=== PATIENT | female | born 1995 | race Caucasian/White ===

== ENCOUNTER 2017-05-08 07:35 | Emergency (ER) | payer SELFPAY ==
[~2017-05-08] VITALS: Ht 167.6 cm; Wt 103.0 kg
[~2017-05-08 07:35] MED LIST: RANI150 PO
[2017-05-08 07:40] VITALS: BP 141/94; PULSE 103; RESP 16; TEMP 97.9; O2SAT 98
[2017-05-08] MEDS ORDERED: IBUP400T20 PO (07:55)
[2017-05-08] MEDS ORDERED: NORC5TAB PO (07:55)
[2017-05-08] MEDS ORDERED: PENI500T PO (07:55)
[2017-05-08] MEDS ORDERED: PERI0.126 SWISH-SPIT (07:55)
--- NOTE | 2017-05-08 07:56 | PD ---
HPI Chief Complaint: Oral / Dental Pain or Problem Time Seen by Provider: 07:45 Travel History International Travel<30 days: No Contact w/Intl Traveler<30days: No Traveled to known affect area: No History of Present Illness HPI The patient is a 22-year-old female who presents to the emergency department for dental pain. The patient has a history of recurrent infections to the lower wisdom tooth on the right side, was being followed by a dentist in [place]. The patient states her last 4 days she's had some tenderness of the posterior, lower, right wisdom tooth. The area is sensitive to heat and cold as well as mastication. The pain is moderate, radiates up to the right ear, and there are no current alleviating or exacerbating factors. The patient denies any drainage in the affected area and denies any significant bleeding from the affected area. She does not currently have a dentist. She denies any trauma to the affected area. PFSH Past Medical History Anxiety: Yes Depression: Yes Diminished Hearing: No Headaches: Yes Immunizations Current: Yes Migraines: Yes Tetanus Vaccination: < 5 Years Influenza Vaccination: No ?: Not LMP: 5 DAYS AGO : 0 Past Surgical History Surgical History: No Previous Surgery Social History Alcohol Use: No (Socially) Tobacco Use: Yes (1/2 PPD) Substance Use: No (Patient denies abuse. States feels that she "needs it for anxiety" (Xanax).) Allergies-Medications (Allergen,Severity, Reaction): Coded Allergies: Trazodone (Unverified Allergy, Unknown, Twitching, 05/08/17) Per pt, she gets "headaches", makes her "twitch and lock up". Reported Meds & Prescriptions Reported Meds & Active Scripts Active Zantac 150 Mg Tab (Ranitidine HCl) 150 Mg Tab 150 Mg PO BID 28 Days Review of Systems Except as stated in HPI: all other systems reviewed are Neg General / Constitutional: No: Fever HENT: Positive: Dental Difficulties, No: Headaches Gastrointestinal: No: Nausea, Vomiting Skin: No Rash Neurologic: No: Paresthesia, Sensory Disturbance Physical Exam Narrative GENERAL: Awake, alert, pleasant 22-year-old female who appears her stated age and is in no acute respiratory distress. SKIN: Focused skin assessment warm/dry. HEAD: Atraumatic. Normocephalic. EYES: Pupils equal and round. No scleral icterus. No injection or drainage. ENT: No nasal bleeding or discharge. Inspection of the dentition reveals that the inferior left and right wisdom tooth are impacted. The patient has some tenderness over the right inferior wisdom tooth, tooth #32. No significant gingival swelling or bleeding noted. No palpable abscess. NECK: Trachea midline. No JVD. MUSCULOSKELETAL: No obvious deformities. No clubbing. No cyanosis. No edema. NEUROLOGICAL: Awake and alert. No obvious cranial nerve deficits. Motor grossly within normal limits. Normal speech. PSYCHIATRIC: Appropriate mood and affect; insight and judgment normal. Data Data Last Documented VS Vital Signs Date Time Temp Pulse Resp B/P Pulse Ox O2 Delivery O2 Flow Rate FiO2 05/08/17 07:40 97.9 103 16 141/94 98 MDM Medical Decision Making Medical Screen Exam Complete: Yes Emergency Medical Condition: Yes Medical Record Reviewed: Yes Differential Diagnosis Differential diagnosis includes pericoronitis, gingivitis, abscess, odontalgia, impacted wisdom tooth. Narrative Course The patient has an impacted wisdom tooth with secondary inflammation, will be placed on Pen-Vee K and then Peridex. She is advised to take pain medications as directed and follow-up with a dentist or oral maxillofacial surgeon for evaluation of her impacted wisdom teeth. Diagnosis Primary Impression: Pericoronitis Patient Instructions: General Instructions Additional Instructions: Pen-Vee K as directed and then Peridex after Pen-Vee K as completed. Ibuprofen and [place] as needed for pain. Follow-up with a dentist or oral maxillofacial surgeon. Diet as tolerated. Med/Other Pt SpecificInfo: Prescription(s) given Scripts Hydrocodone-Acetaminophen ([place])5-325 mg Tab1 Tab PO Q6H PRN (PAIN) #15 TAB Ref 0 Prov:Ryan Gant MD 05/08/17 Ibuprofen 400 Mg [id number] Mg PO Q6H PRN (PAIN SCALE 1 TO 10) #20 TAB Ref 0 Prov:Ryan Gant MD 05/08/17 Chlorhexidine Gluconate (Mouth) Liq (Peridex Liq)0.12% Soln15 Ml SWISH-SPIT BID #473 ML Ref 0 Prov:Ryan Gant MD 05/08/17 Penicillin V Potassium 500 Mg [id number] Mg PO Q6H 10 Days Ref 0 Prov:Ryan Gant MD 05/08/17 Disposition: 01 DISCHARGE HOME Condition: Stable Ryan Gant MD May 08, 2017 07:55
== END 2017-05-08 08:15 | disposition home or self-care (01) ==
LOC: PHED 07:35
DX: K05.30 Chronic periodontitis, unspecified (principal); F17.210 Nicotine dependence, cigarettes, uncomplicated
CPT/HCPCS: 99284

== ENCOUNTER 2017-06-21 19:47 | Emergency (ER) | payer SELFPAY ==
[~2017-06-21] VITALS: Ht 167.6 cm; Wt 105.5 kg
[~2017-06-21 19:47] MED LIST changes: +IBUP400T20 PO; +NORC5TAB PO; +PENI500T PO; +PERI0.126 SWISH-SPIT
[2017-06-21 19:52] VITALS: BP 130/83; PULSE 98; RESP 16; TEMP 98.5; O2SAT 100
[2017-06-21] MEDS ORDERED: PENI250T PO (20:14)
--- NOTE | 2017-06-21 20:15 | PD ---
HPI Chief Complaint: Oral / Dental Pain or Problem Time Seen by Provider: 20:06 Travel History International Travel<30 days: No Contact w/Intl Traveler<30days: No History of Present Illness HPI 22-year-old female presents emergency department for evaluation of bilateral lower molar pain and gum swelling. She denies fever or chills. She reports the pain is constant throbbing, nonradiating, no aggravating or alleviating factors. Symptoms severity 04/27. PFSH Past Medical History Anxiety: Yes Depression: Yes Diminished Hearing: No Headaches: Yes Immunizations Current: Yes Migraines: Yes : 0 Social History Alcohol Use: No (Socially) Tobacco Use: Yes (/2 PPD) Substance Use: No (Patient denies abuse. States feels that she "needs it for anxiety" (Xanax).) Allergies-Medications (Allergen,Severity, Reaction): Coded Allergies: Trazodone (Unverified Allergy, Unknown, Twitching, 05/08/17) Per pt, she gets "headaches", makes her "twitch and lock up". Reported Meds & Prescriptions Reported Meds & Active Scripts Active [place] (Hydrocodone-Acetaminophen) 5-325 mg Tab 1 Tab PO Q6H PRN Ibuprofen 400 Mg Tab 400 Mg PO Q6H PRN Peridex Liq (Chlorhexidine Gluconate (Mouth) Liq) 0.12% Soln 15 Ml SWISH-SPIT BID Penicillin V Potassium 500 Mg Tab 500 Mg PO Q6H 10 Days Zantac 150 Mg Tab (Ranitidine HCl) 150 Mg Tab 150 Mg PO BID 28 Days Review of Systems Except as stated in HPI: all other systems reviewed are Neg General / Constitutional: No: Fever Physical Exam Narrative GENERAL: Well-nourished, well-developed patient. SKIN: Focused skin assessment warm/dry. HEAD: Normocephalic. EYES: No scleral icterus. No injection or drainage. MOUTH: Tooth #31 and #18 has surrounding gum erythema and tenderness. NECK: Supple, trachea midline. No JVD or lymphadenopathy. CARDIOVASCULAR: Regular rate and rhythm without murmurs, gallops, or rubs. RESPIRATORY: Breath sounds equal bilaterally. No accessory muscle use. Data Data Last Documented VS Vital Signs Date Time Temp Pulse Resp B/P Pulse Ox O2 Delivery O2 Flow Rate FiO2 06/21/17 19:52 98.5 98 16 130/83 100 MDM Medical Decision Making Medical Screen Exam Complete: Yes Emergency Medical Condition: Yes Differential Diagnosis Dental pain, dental infection, dental abscess compared dental disease Narrative Course 22-year-old female with chief complaint of bilateral lower molar pain 3 days. She denies fever or chills. On exam she has gum swelling and erythema. Patient be treated for dental infection. Instructed follow-up with dentist. Patient verbalizes understanding and agrees to plan. Diagnosis Primary Impression: Dental infection Referrals: Dentist Additional Instructions: Take the antibiotics as prescribed. Take [id number] Motrin and Tylenol as needed for pain. Follow-up with dentist. Scripts Penicillin V Potassium 250 Mg [id number] Mg PO Q6H #28 TAB Prov:Jaimee Flores 06/21/17 Disposition: 01 DISCHARGE HOME Condition: Stable Jaimee Flores Jun 21, 2017 20:15
== END 2017-06-21 20:45 | disposition home or self-care (01) ==
LOC: PHEFT 19:47
DX: K04.7 Periapical abscess without sinus (principal); F17.200 Nicotine dependence, unspecified, uncomplicated; Z86.59 Personal history of other mental and behavioral disorders; Z86.69 Personal history of other diseases of the nervous system and sense organs
CPT/HCPCS: 99283